=== PATIENT | male | born 1960 | race Caucasian/White ===

== ENCOUNTER 2016-10-11 09:44 | Inpatient (IN) | payer MEDICARE, OTHER ==
[2016-10-11] VITALS (7 sets, daily range): BP systolic 82–117; BP diastolic 51–74
[~2016-10-11] VITALS: Ht 198.1 cm; Wt 87.0 kg
[~2016-10-11 09:44] MED LIST: ADEMPAS HOMEMEDPO; AZIT-14 PO; BACL-19 PO; BISA5TAB5 PO; CEFD300C2 PO; DABI150C PO; DIAZ5TAB PO; FURO-92 PO; FURO-93 PO; FURO20TA3 PO; L. R1CAP PO; LEVO750T6 PO; LOVENOX SC; METO25TA35 PO; POTA8TAB6 PO; RIOC1.5T PO; SENN8.6T64 PO; SERT50TA5 PO; SIME80TA16 PO; TIZA2CAP PO; TIZA2TAB PO; TRAM50TA2 PO; TREP10VI PERC; VALIUM PO; WARF3TAB PO; WARF4TAB PO
[2016-10-11] MEDS ORDERED: ONDANSETRON 2MG/ML, 2ML IVP ONE (10:00)
[2016-10-11] MEDS ORDERED: SODIUM CHLORIDE FLUSH 10ML SYR IVF ONE ×2 (10:00→13:30)
[2016-10-11] MEDS ORDERED: ONDANSETRON 2MG/ML, 2ML ONE (10:06)
[2016-10-11] MEDS ORDERED: MORPHINE SULFATE 4 MG/ML, 1ML ONE ×2 (10:06→10:43)
[2016-10-11] MEDS: MORPHINE SULFATE 4 MG/ML, 1ML IVPush PRN ×3 (10:09→17:18)
[2016-10-11 10:47] LABS: HEMOGLOBIN 11.9 g/dL (13.7-18.0)
[2016-10-11] MEDS ORDERED: LEVOFLOXACIN/PMX 750MG/150ML 150 ML ONE (10:52)
[2016-10-11 10:59] LABS: BLOOD UREA NITROGEN 8 mg/dL (7-18)
[2016-10-11] MEDS ORDERED: LEVOFLOXACIN/PMX 750MG/150ML 150 ML IVPB ONE (11:00)
[2016-10-11] MEDS ORDERED: TRAM50TA2 PO (11:01)
[2016-10-11 11:06] LABS: ASPARTATE AMINO TRANSFERASE 21 U/L (15-37)
[2016-10-11 11:07] LABS: IS PT STATUS REG ER OR PRE ER? YES
[2016-10-11] MEDS ORDERED: DOCUSATE 100 MG CAPSULE PO PRN (13:00)
[2016-10-11] MEDS ORDERED: BISACODYL 10 MG SUPP PR PRN (13:00)
[2016-10-11] MEDS: OXYcodone IR 5MG TABLET PO PRN (16:28)
[2016-10-11 18:30] LABS: ICTOTEST POSITIVE
[2016-10-11] MEDS: RIOCIGUAT 1 MG HOMEMEDPO SCH ×2 (18:59→21:00)
[2016-10-11] MEDS: DIAZEPAM 5 MG TABLET PO SCH (21:43)
[2016-10-11] MEDS: SODIUM CHLORIDE 0.9% 1,000 ML IV SCH (21:43)
[2016-10-11] MEDS: DABIGATRAN 150 MG CAPSULE PO SCH (22:07)
[2016-10-12] MEDS: OXYcodone IR 5MG TABLET PO PRN ×2 (01:03→21:17)
[2016-10-12 01:42] VITALS: BP 96/64
[2016-10-12] MEDS: SODIUM CHLORIDE 0.9% 1,000 ML IV SCH (06:37)
[2016-10-12 07:56] VITALS: BP 98/67
[2016-10-12] MEDS: SERTRALINE 50MG TABLET PO SCH (08:02)
[2016-10-12] MEDS: DABIGATRAN 150 MG CAPSULE PO SCH ×2 (08:02→21:16)
[2016-10-12] MEDS: RIOCIGUAT 1 MG HOMEMEDPO SCH ×3 (08:03→21:17)
[2016-10-12] MEDS ORDERED: PHENYLEPHRINE 10 MG/ML ONE (09:32)
[2016-10-12] MEDS ORDERED: PROPOFOL 10 MG/ML, 20ML ONE (09:32)
[2016-10-12] MEDS: LEVOFLOXACIN/PMX 750MG/150ML 150 ML IV SCH (11:47)
[2016-10-12 15:06] VITALS: BP 91/61
[2016-10-12 16:31] VITALS: BP 97/68
[2016-10-12 18:02] VITALS: BP 97/64
[2016-10-12] MEDS: MORPHINE SULFATE 4 MG/ML, 1ML IVPush PRN (18:05)
[2016-10-12 19:20] VITALS: BP 96/63
[2016-10-12] MEDS: DIAZEPAM 5 MG TABLET PO SCH (21:17)
[2016-10-13 03:48] VITALS: BP 94/60
[2016-10-13] MEDS: OXYcodone IR 5MG TABLET PO PRN (04:00)
[2016-10-13 06:50] VITALS: BP 93/63
[2016-10-13] MEDS ORDERED: DIAZEPAM 5 MG/ML, 2ML ONE (09:44)
[2016-10-13] MEDS ORDERED: DIAZEPAM 5 MG/ML, 2ML IV ONE (10:00)
[2016-10-13] MEDS: RIOCIGUAT 1 MG HOMEMEDPO SCH ×4 (10:10→20:54)
[2016-10-13] MEDS: SERTRALINE 50MG TABLET PO SCH ×2 (10:10→13:27)
[2016-10-13] MEDS: DABIGATRAN 150 MG CAPSULE PO SCH ×3 (10:10→23:46)
[2016-10-13 10:20] LABS: IS PT STATUS REG ER OR PRE ER? NO
[2016-10-13 10:30] VITALS: BP 89/52
[2016-10-13 10:34] LABS: HEMOGLOBIN 11.2 g/dL (13.7-18.0)
[2016-10-13 10:38] LABS: ASPARTATE AMINO TRANSFERASE 23 U/L (15-37); BLOOD UREA NITROGEN 9 mg/dL (7-18)
[2016-10-13] MEDS ORDERED: OMNIPAQUE 350 MG/ML, 100ML BOTTLE ONE (11:22)
[2016-10-13] MEDS: BISACODYL 10 MG SUPP PR PRN (11:36)
[2016-10-13] MEDS: LEVOFLOXACIN/PMX 750MG/150ML 150 ML IV SCH (13:23)
[2016-10-13] MEDS: LINEZOLID 600 MG TABLET PO SCH (20:55)
[2016-10-13] MEDS: DIAZEPAM 5 MG TABLET PO SCH (20:57)
[2016-10-13] MEDS: ONDANSETRON 2MG/ML, 2ML IVP PRN (20:57)
[2016-10-14] MEDS: CARISOPRODOL 350 MG TABLET PO PRN ×2 (06:33→12:53)
[2016-10-14] MEDS: LINEZOLID 600 MG TABLET PO SCH ×2 (09:06→22:06)
[2016-10-14] MEDS: SERTRALINE 50MG TABLET PO SCH (09:06)
[2016-10-14] MEDS: DABIGATRAN 150 MG CAPSULE PO SCH ×2 (09:06→22:06)
[2016-10-14] MEDS: RIOCIGUAT 1 MG HOMEMEDPO SCH ×3 (09:07→21:00)
[2016-10-14] MEDS: ACETAMINOPHEN 325 MG TABLET PO PRN (12:57)
[2016-10-14] MEDS: ONDANSETRON 2MG/ML, 2ML IVP PRN ×2 (12:57→19:33)
[2016-10-14 14:00] VITALS: BP 83/54
[2016-10-14] MEDS ORDERED: KETOROLAC 30 MG/1 ML IVPush ONE (18:30)
[2016-10-14 20:00] VITALS: BP 95/62
[2016-10-14] MEDS: DIAZEPAM 5 MG TABLET PO SCH (22:08)
[2016-10-15 02:00] VITALS: BP 88/59
[2016-10-15 06:39] LABS: HEMOGLOBIN 11.8 g/dL (13.7-18.0)
[2016-10-15 06:50] LABS: ASPARTATE AMINO TRANSFERASE 13 U/L (15-37); BLOOD UREA NITROGEN 8 mg/dL (7-18)
[2016-10-15] MEDS: ONDANSETRON 2MG/ML, 2ML IVP PRN ×3 (07:16→21:03)
[2016-10-15] MEDS: RIOCIGUAT 1 MG HOMEMEDPO SCH ×3 (09:00→22:00)
[2016-10-15] MEDS: SERTRALINE 50MG TABLET PO SCH (09:28)
[2016-10-15] MEDS: DABIGATRAN 150 MG CAPSULE PO SCH ×2 (09:28→20:08)
[2016-10-15] MEDS: LINEZOLID 600 MG TABLET PO SCH ×2 (09:28→20:08)
[2016-10-15] MEDS ORDERED: DIAZEPAM 5 MG/ML, 2ML IV PRN (14:00)
[2016-10-15] MEDS ORDERED: SODIUM CHLORIDE 0.9%, 500ML IVBOLUS ONE ×2 (17:30→18:00)
[2016-10-15 18:10] LABS: BLOOD UREA NITROGEN 9 mg/dL (7-18)
[2016-10-15] MEDS: DIAZEPAM 5 MG TABLET PO SCH (20:08)
[2016-10-16] MEDS: ONDANSETRON 2MG/ML, 2ML IVP PRN ×2 (04:25→12:50)
[2016-10-16 04:34] VITALS: BP 102/61
[2016-10-16 04:43] LABS: HEMOGLOBIN 11.5 g/dL (13.7-18.0)
[2016-10-16 04:50] LABS: BLOOD UREA NITROGEN 10 mg/dL (7-18)
[2016-10-16] MEDS: DABIGATRAN 150 MG CAPSULE PO SCH (09:00)
[2016-10-16] MEDS: RIOCIGUAT 1 MG HOMEMEDPO SCH ×3 (09:00→21:00)
[2016-10-16] MEDS: LINEZOLID 600 MG TABLET PO SCH ×2 (09:15→21:42)
[2016-10-16] MEDS: SERTRALINE 50MG TABLET PO SCH (09:15)
[2016-10-16 12:56] VITALS: BP 89/44
[2016-10-16 13:18] VITALS: BP 91/56
[2016-10-16] MEDS: BACLOFEN 10 MG TABLET PO SCH ×3 (15:16→21:41)
[2016-10-16 15:23] VITALS: BP 90/50
[2016-10-16 21:00] VITALS: BP 97/59
[2016-10-16] MEDS: DIAZEPAM 5 MG TABLET PO SCH (22:29)
[2016-10-17 03:45] VITALS: BP 108/67
[2016-10-17 05:35] LABS: HEMOGLOBIN 11.2 g/dL (13.7-18.0)
[2016-10-17 05:46] LABS: BLOOD UREA NITROGEN 8 mg/dL (7-18)
[2016-10-17 07:31] VITALS: BP 90/51
[2016-10-17] MEDS: ONDANSETRON 2MG/ML, 2ML IVP PRN (08:47)
[2016-10-17] MEDS: BACLOFEN 10 MG TABLET PO SCH ×3 (08:52→20:35)
[2016-10-17] MEDS: LINEZOLID 600 MG TABLET PO SCH (08:53)
[2016-10-17] MEDS: SERTRALINE 50MG TABLET PO SCH (08:54)
[2016-10-17] MEDS: RIOCIGUAT 1 MG HOMEMEDPO SCH ×5 (08:54→21:00)
[2016-10-17 13:15] VITALS: BP 80/49
[2016-10-17 14:59] VITALS: BP 94/59
[2016-10-17] MEDS: DABIGATRAN 150 MG CAPSULE PO SCH (17:16)
[2016-10-17] MEDS ORDERED: FUROSEMIDE 20 MG/2 ML IV ONE (17:30)
[2016-10-17] MEDS ORDERED: POTASSIUM CHLORIDE 20 MEQ TAB.ER.PRT PO ONE (17:30)
[2016-10-17 17:58] VITALS: BP 95/60
[2016-10-17 20:25] VITALS: BP 93/58
[2016-10-17] MEDS: DIAZEPAM 5 MG TABLET PO SCH (20:35)
[2016-10-18 03:00] VITALS: BP 94/59
[2016-10-18] MEDS: ONDANSETRON 2MG/ML, 2ML IVP PRN (03:38)
[2016-10-18] MEDS ORDERED: LOPERAMIDE 2 MG CAPSULE PO PRN (07:00)
[2016-10-18 07:42] LABS: HEMOGLOBIN 12.3 g/dL (13.7-18.0)
[2016-10-18 07:49] LABS: BLOOD UREA NITROGEN 7 mg/dL (7-18)
[2016-10-18] MEDS: MORPHINE SULFATE 4 MG/ML, 1ML IVPush PRN (07:50)
[2016-10-18] MEDS: DABIGATRAN 150 MG CAPSULE PO SCH ×2 (09:00→21:11)
[2016-10-18] MEDS: RIOCIGUAT 1 MG HOMEMEDPO SCH ×4 (09:00→23:09)
[2016-10-18 09:03] VITALS: BP 96/61
[2016-10-18] MEDS: SERTRALINE 50MG TABLET PO SCH (09:18)
[2016-10-18] MEDS: BACLOFEN 10 MG TABLET PO SCH ×3 (09:18→21:11)
[2016-10-18] MEDS ORDERED: POTASSIUM CHLORIDE 20 MEQ TAB.ER.PRT PO ONE (11:00)
[2016-10-18] MEDS ORDERED: FUROSEMIDE 40 MG/4 ML IV ONE (11:00)
[2016-10-18 15:00] VITALS: BP 90/57
[2016-10-18 19:20] VITALS: BP 90/58
[2016-10-18] MEDS: DIAZEPAM 5 MG TABLET PO SCH (21:11)
[2016-10-19 03:30] VITALS: BP 92/54
[2016-10-19 06:00] LABS: BLOOD UREA NITROGEN 9 mg/dL (7-18)
[2016-10-19 08:20] VITALS: BP 92/50
[2016-10-19 08:38] LABS: HEMOGLOBIN 11.4 g/dL (13.7-18.0)
[2016-10-19] MEDS: RIOCIGUAT 1 MG HOMEMEDPO SCH ×3 (09:00→21:00)
[2016-10-19] MEDS: BACLOFEN 10 MG TABLET PO SCH ×3 (09:34→20:47)
[2016-10-19] MEDS: DABIGATRAN 150 MG CAPSULE PO SCH ×2 (09:34→20:47)
[2016-10-19] MEDS: SERTRALINE 50MG TABLET PO SCH (09:34)
[2016-10-19] MEDS ORDERED: FUROSEMIDE 40 MG/4 ML IV ONE (14:30)
[2016-10-19 15:06] VITALS: BP 93/52
[2016-10-19 19:47] VITALS: BP 108/61
[2016-10-19] MEDS: DIAZEPAM 5 MG TABLET PO SCH (20:47)
[2016-10-20 03:30] VITALS: BP 98/58
[2016-10-20 04:10] VITALS: BP_SYST 96; BP_SYST 98; BP_DIAS 58
[2016-10-20 06:10] LABS: HEMOGLOBIN 11.1 g/dL (13.7-18.0)
[2016-10-20 06:24] LABS: BLOOD UREA NITROGEN 8 mg/dL (7-18)
[2016-10-20] MEDS ORDERED: FUROSEMIDE 40 MG/4 ML IV ONE (07:00)
[2016-10-20] MEDS ORDERED: POTASSIUM CHLORIDE 20 MEQ TAB.ER.PRT PO ONE ×2 (07:00→19:00)
[2016-10-20] MEDS: DABIGATRAN 150 MG CAPSULE PO SCH ×2 (08:43→22:39)
[2016-10-20] MEDS: BACLOFEN 10 MG TABLET PO SCH ×3 (08:43→22:38)
[2016-10-20] MEDS: SERTRALINE 50MG TABLET PO SCH (08:44)
[2016-10-20] MEDS: RIOCIGUAT 1 MG HOMEMEDPO SCH ×2 (08:44→18:50)
[2016-10-20 09:25] VITALS: BP 99/67
[2016-10-20 14:55] VITALS: BP 116/73
[2016-10-20 19:55] VITALS: BP 97/57
[2016-10-20] MEDS: DIAZEPAM 5 MG TABLET PO SCH (22:39)
[2016-10-21] MEDS: RIOCIGUAT 1 MG HOMEMEDPO SCH ×3 (00:38→18:01)
[2016-10-21 01:12] VITALS: BP 95/57
[2016-10-21 07:24] VITALS: BP 102/66
[2016-10-21 08:16] LABS: HEMOGLOBIN 11.4 g/dL (13.7-18.0)
[2016-10-21 08:28] LABS: BLOOD UREA NITROGEN 11 mg/dL (7-18)
[2016-10-21] MEDS: MORPHINE SULFATE 4 MG/ML, 1ML IVPush PRN ×2 (11:08→15:00)
[2016-10-21 11:10] VITALS: BP 103/66
[2016-10-21] MEDS: BACLOFEN 10 MG TABLET PO SCH ×3 (11:13→21:10)
[2016-10-21] MEDS: DABIGATRAN 150 MG CAPSULE PO SCH ×2 (11:13→21:10)
[2016-10-21] MEDS: SERTRALINE 50MG TABLET PO SCH (11:13)
[2016-10-21 13:10] VITALS: BP 121/75
[2016-10-21 20:44] VITALS: BP 108/64
[2016-10-21] MEDS: DIAZEPAM 5 MG TABLET PO SCH (21:09)
[2016-10-21 23:03] VITALS: BP 97/61
[2016-10-22] VITALS (7 sets, daily range): BP systolic 81–97; BP diastolic 41–62
[2016-10-22] MEDS: RIOCIGUAT 1 MG HOMEMEDPO SCH ×3 (01:51→22:40)
[2016-10-22 05:29] LABS: HEMOGLOBIN 11.2 g/dL (13.7-18.0)
[2016-10-22 06:44] LABS: ASPARTATE AMINO TRANSFERASE 13 U/L (15-37); BLOOD UREA NITROGEN 12 mg/dL (7-18)
[2016-10-22] MEDS ORDERED: FUROSEMIDE 40 MG/4 ML IV ONE (09:00)
[2016-10-22] MEDS: BACLOFEN 10 MG TABLET PO SCH ×3 (09:36→22:27)
[2016-10-22] MEDS: SERTRALINE 50MG TABLET PO SCH (09:36)
[2016-10-22] MEDS: DABIGATRAN 150 MG CAPSULE PO SCH ×2 (09:38→22:27)
[2016-10-22] MEDS: DIAZEPAM 2 MG TABLET PO PRN (14:56)
[2016-10-22] MEDS ORDERED: RIOCIGUAT PO ONE (17:00)
[2016-10-22] MEDS: MORPHINE SULFATE 4 MG/ML, 1ML IVPush PRN (22:22)
[2016-10-22 23:40] LABS: ICTOTEST NEGATIVE
[2016-10-23] MEDS: DIAZEPAM 5 MG TABLET PO SCH ×2 (00:04→20:17)
[2016-10-23 02:21] VITALS: BP 91/56
[2016-10-23 07:28] VITALS: BP 103/76
[2016-10-23] MEDS: BACLOFEN 10 MG TABLET PO SCH ×3 (08:56→20:17)
[2016-10-23] MEDS: RIOCIGUAT 1 MG HOMEMEDPO SCH ×3 (08:57→20:18)
[2016-10-23] MEDS: SERTRALINE 50MG TABLET PO SCH (08:57)
[2016-10-23] MEDS: DABIGATRAN 150 MG CAPSULE PO SCH ×2 (08:57→20:17)
[2016-10-23 13:54] VITALS: BP 102/62
[2016-10-23 19:25] VITALS: BP 107/62
[2016-10-24 01:38] VITALS: BP 108/62
[2016-10-24 07:02] VITALS: BP 87/47
[2016-10-24 07:16] LABS: BLOOD UREA NITROGEN 12 mg/dL (7-18)
[2016-10-24] MEDS ORDERED: POTASSIUM CHLORIDE 20 MEQ TAB.ER.PRT PO ONE (09:00)
[2016-10-24] MEDS: RIOCIGUAT 1 MG HOMEMEDPO SCH ×3 (09:00→21:00)
[2016-10-24] MEDS: DABIGATRAN 150 MG CAPSULE PO SCH ×2 (09:22→21:44)
[2016-10-24] MEDS: BACLOFEN 10 MG TABLET PO SCH ×3 (09:22→21:44)
[2016-10-24] MEDS: SERTRALINE 50MG TABLET PO SCH (09:22)
[2016-10-24 13:14] VITALS: BP 93/58
[2016-10-24 19:55] VITALS: BP 81/49
[2016-10-24] MEDS: DIAZEPAM 5 MG TABLET PO SCH (21:43)
[2016-10-25 02:25] VITALS: BP 111/75
[2016-10-25 06:30] VITALS: BP 97/49
[2016-10-25] MEDS: SERTRALINE 50MG TABLET PO SCH (08:54)
[2016-10-25] MEDS: DABIGATRAN 150 MG CAPSULE PO SCH ×2 (08:54→21:48)
[2016-10-25] MEDS: RIOCIGUAT 1 MG HOMEMEDPO SCH ×3 (08:55→21:47)
[2016-10-25] MEDS: BACLOFEN 10 MG TABLET PO SCH ×3 (08:55→21:48)
[2016-10-25 13:20] VITALS: BP 95/56
[2016-10-25] MEDS: BISACODYL 10 MG SUPP PR PRN (15:05)
[2016-10-25] MEDS: MORPHINE SULFATE 4 MG/ML, 1ML IVPush PRN ×2 (17:27→21:48)
[2016-10-25 18:55] VITALS: BP 96/56
[2016-10-25] MEDS ORDERED: DIAZEPAM 10 MG TABLET ONE ×3 (19:24→21:28)
[2016-10-25] MEDS: DIAZEPAM 2 MG TABLET PO PRN (19:33)
[2016-10-25] MEDS: DIAZEPAM 5 MG TABLET PO SCH (21:46)
[2016-10-26] VITALS: BP 116/73
[2016-10-26] MEDS: OXYcodone IR 5MG TABLET PO PRN ×2 (00:03→12:56)
[2016-10-26 06:50] VITALS: BP 103/52
[2016-10-26] MEDS: DABIGATRAN 150 MG CAPSULE PO SCH ×2 (09:00→22:48)
[2016-10-26] MEDS: RIOCIGUAT 1 MG HOMEMEDPO SCH ×3 (09:00→21:00)
[2016-10-26] MEDS: BACLOFEN 10 MG TABLET PO SCH ×3 (09:00→22:48)
[2016-10-26] MEDS: SERTRALINE 100MG TABLET PO SCH (09:00)
[2016-10-26] MEDS: MORPHINE SULFATE 4 MG/ML, 1ML IVPush PRN (11:03)
[2016-10-26 13:55] VITALS: BP 92/55
[2016-10-26 20:05] VITALS: BP 123/77
[2016-10-26] MEDS: DIAZEPAM 5 MG TABLET PO SCH (22:48)
[2016-10-27] VITALS (7 sets, daily range): BP systolic 92–106; BP diastolic 45–95
[2016-10-27 07:32] LABS: HEMOGLOBIN 11.5 g/dL (13.7-18.0)
[2016-10-27 07:47] LABS: BLOOD UREA NITROGEN 13 mg/dL (7-18)
[2016-10-27] MEDS: BACLOFEN 10 MG TABLET PO SCH ×3 (08:04→21:55)
[2016-10-27] MEDS: SERTRALINE 100MG TABLET PO SCH (08:04)
[2016-10-27] MEDS: MORPHINE SULFATE 4 MG/ML, 1ML IVPush PRN ×2 (08:04→14:41)
[2016-10-27] MEDS: DABIGATRAN 150 MG CAPSULE PO SCH ×2 (08:04→21:55)
[2016-10-27] MEDS: RIOCIGUAT 1 MG HOMEMEDPO SCH ×3 (09:37→21:00)
[2016-10-27] MEDS: OXYcodone IR 5MG TABLET PO PRN (16:25)
[2016-10-27] MEDS: DIAZEPAM 5 MG TABLET PO SCH (21:55)
[2016-10-28 01:58] VITALS: BP 97/55
[2016-10-28 08:01] VITALS: BP 164/83
[2016-10-28] MEDS: BACLOFEN 10 MG TABLET PO SCH ×3 (09:12→21:50)
[2016-10-28] MEDS: SERTRALINE 100MG TABLET PO SCH (09:12)
[2016-10-28] MEDS: DABIGATRAN 150 MG CAPSULE PO SCH ×2 (09:12→21:50)
[2016-10-28] MEDS: RIOCIGUAT 1 MG HOMEMEDPO SCH ×3 (09:12→23:45)
[2016-10-28] MEDS: MORPHINE SULFATE 4 MG/ML, 1ML IVPush PRN ×2 (12:44→20:04)
[2016-10-28 14:00] VITALS: BP 99/59
[2016-10-28 17:20] LABS: OCCBLD OBC PASS
[2016-10-28] MEDS ORDERED: BISACODYL 10 MG SUPP PR PRN (19:00)
[2016-10-28 20:00] VITALS: BP 95/50
[2016-10-28] MEDS: DOCUSATE 100 MG CAPSULE PO SCH (21:49)
[2016-10-28] MEDS: DIAZEPAM 5 MG TABLET PO SCH (21:50)
[2016-10-29 02:00] VITALS: BP 98/62
[2016-10-29 08:00] VITALS: BP 101/63
[2016-10-29] MEDS: SERTRALINE 100MG TABLET PO SCH (09:04)
[2016-10-29] MEDS: DOCUSATE 100 MG CAPSULE PO SCH ×2 (09:04→21:14)
[2016-10-29] MEDS: BACLOFEN 10 MG TABLET PO SCH ×3 (09:04→21:14)
[2016-10-29] MEDS: DABIGATRAN 150 MG CAPSULE PO SCH ×2 (09:04→21:14)
[2016-10-29] MEDS: RIOCIGUAT 1 MG HOMEMEDPO SCH ×3 (09:05→23:30)
[2016-10-29] MEDS: MORPHINE SULFATE 4 MG/ML, 1ML IVPush PRN ×2 (10:27→15:37)
[2016-10-29 14:00] VITALS: BP 96/61
[2016-10-29] MEDS: ONDANSETRON 2MG/ML, 2ML IVP PRN (17:47)
[2016-10-29 20:45] VITALS: BP 90/53
[2016-10-29] MEDS: DIAZEPAM 5 MG TABLET PO SCH (21:15)
[2016-10-30] VITALS: BP 93/61
[2016-10-30 07:30] VITALS: BP 91/54
[2016-10-30] MEDS ORDERED: DOCUSATE 100 MG CAPSULE PO SCH (09:00)
[2016-10-30] MEDS: RIOCIGUAT 1 MG HOMEMEDPO SCH ×3 (09:00→21:00)
[2016-10-30] MEDS ORDERED: BISACODYL 10 MG SUPP PR SCH (09:00)
[2016-10-30] MEDS: OMEPRAZOLE 20 MG CAPSULE.DR PO SCH (09:38)
[2016-10-30] MEDS: BACLOFEN 10 MG TABLET PO SCH ×3 (09:40→22:16)
[2016-10-30] MEDS: DOCUSATE 100 MG CAPSULE PO SCH ×2 (09:40→22:15)
[2016-10-30] MEDS: DABIGATRAN 150 MG CAPSULE PO SCH ×2 (09:41→22:16)
[2016-10-30] MEDS: SERTRALINE 100MG TABLET PO SCH (09:41)
[2016-10-30] MEDS: BISACODYL 10 MG SUPP PR SCH (09:42)
[2016-10-30] MEDS: MORPHINE SULFATE 4 MG/ML, 1ML IVPush PRN (10:25)
[2016-10-30 13:15] VITALS: BP 94/64
[2016-10-30] MEDS: OXYcodone IR 5MG TABLET PO PRN (13:54)
[2016-10-30] MEDS ORDERED: OMNIPAQUE 350 MG/ML, 100ML BOTTLE ONE (16:18)
[2016-10-30 20:00] VITALS: BP 91/53
[2016-10-30] MEDS: DIAZEPAM 5 MG TABLET PO SCH (22:16)
[2016-10-31 02:00] VITALS: BP 90/56
[2016-10-31] MEDS: MORPHINE SULFATE 4 MG/ML, 1ML IVPush PRN ×2 (06:03→12:58)
[2016-10-31 06:30] VITALS: BP_SYST 92; BP_DIAS 50; BP_DIAS 56
[2016-10-31 06:34] LABS: BLOOD UREA NITROGEN 15 mg/dL (7-18)
[2016-10-31] MEDS: OMEPRAZOLE 20 MG CAPSULE.DR PO SCH (07:52)
[2016-10-31] MEDS: RIOCIGUAT 1 MG HOMEMEDPO SCH ×3 (09:00→21:00)
[2016-10-31] MEDS: DOCUSATE 100 MG CAPSULE PO SCH ×2 (10:04→21:27)
[2016-10-31] MEDS: BACLOFEN 10 MG TABLET PO SCH ×3 (10:04→21:04)
[2016-10-31] MEDS: SERTRALINE 100MG TABLET PO SCH (10:04)
[2016-10-31] MEDS: DABIGATRAN 150 MG CAPSULE PO SCH ×2 (10:04→21:04)
[2016-10-31 13:44] VITALS: BP 103/63
[2016-10-31 19:29] VITALS: BP 93/55
[2016-10-31] MEDS: DIAZEPAM 5 MG TABLET PO SCH (21:27)
[2016-11-01 02:00] VITALS: BP 90/53
[2016-11-01 04:36] VITALS: BP 90/53
[2016-11-01] MEDS: MORPHINE SULFATE 4 MG/ML, 1ML IVPush PRN (04:42)
[2016-11-01 05:39] VITALS: BP 90/53
[2016-11-01] MEDS: ONDANSETRON 2MG/ML, 2ML IVP PRN ×3 (08:25→22:22)
[2016-11-01 08:30] VITALS: BP 84/53
[2016-11-01] MEDS: RIOCIGUAT 1 MG HOMEMEDPO SCH ×3 (09:00→21:00)
[2016-11-01] MEDS: DOCUSATE 100 MG CAPSULE PO SCH ×2 (09:41→21:45)
[2016-11-01] MEDS: DABIGATRAN 150 MG CAPSULE PO SCH ×2 (09:41→21:45)
[2016-11-01] MEDS: OMEPRAZOLE 20 MG CAPSULE.DR PO SCH (09:41)
[2016-11-01] MEDS: SERTRALINE 100MG TABLET PO SCH (09:41)
[2016-11-01] MEDS: BISACODYL 10 MG SUPP PR SCH (09:41)
[2016-11-01] MEDS: BACLOFEN 10 MG TABLET PO SCH ×3 (09:42→21:45)
[2016-11-01 13:26] VITALS: BP 96/61
[2016-11-01] MEDS: OXYcodone IR 5MG TABLET PO PRN (14:58)
[2016-11-01] MEDS: ACETAMINOPHEN 325 MG TABLET PO PRN (17:49)
[2016-11-01 20:41] VITALS: BP 83/51
[2016-11-01] MEDS: DIAZEPAM 5 MG TABLET PO SCH (21:45)
[2016-11-02 02:30] VITALS: BP 85/52
[2016-11-02 04:52] VITALS: BP 87/37
[2016-11-02 06:42] VITALS: BP 99/56
[2016-11-02] MEDS: RIOCIGUAT 1 MG HOMEMEDPO SCH ×3 (09:00→21:51)
[2016-11-02] MEDS ORDERED: GADOBUTROL 10 MMOL/10 ML PFS ONE (09:29)
[2016-11-02] MEDS: OMEPRAZOLE 20 MG CAPSULE.DR PO SCH (10:07)
[2016-11-02] MEDS: DOCUSATE 100 MG CAPSULE PO SCH ×2 (10:09→21:50)
[2016-11-02] MEDS: BACLOFEN 10 MG TABLET PO SCH ×3 (10:10→21:50)
[2016-11-02] MEDS: SERTRALINE 100MG TABLET PO SCH (10:10)
[2016-11-02] MEDS: DABIGATRAN 150 MG CAPSULE PO SCH ×2 (10:11→21:50)
[2016-11-02] MEDS: ONDANSETRON 2MG/ML, 2ML IVP PRN (10:20)
[2016-11-02 13:17] VITALS: BP 89/58
[2016-11-02 18:35] VITALS: BP 91/54
[2016-11-02] MEDS: DIAZEPAM 5 MG TABLET PO SCH (21:50)
[2016-11-03 01:31] VITALS: BP 92/53
[2016-11-03] MEDS: OXYcodone IR 5MG TABLET PO PRN ×3 (01:36→19:38)
[2016-11-03 06:41] VITALS: BP 87/50
[2016-11-03] MEDS: BACLOFEN 10 MG TABLET PO SCH ×3 (08:16→23:52)
[2016-11-03] MEDS: DABIGATRAN 150 MG CAPSULE PO SCH ×2 (08:16→23:53)
[2016-11-03] MEDS: OMEPRAZOLE 20 MG CAPSULE.DR PO SCH (08:16)
[2016-11-03] MEDS: DOCUSATE 100 MG CAPSULE PO SCH ×2 (08:16→23:53)
[2016-11-03] MEDS: RIOCIGUAT 1 MG HOMEMEDPO SCH ×3 (08:17→21:00)
[2016-11-03] MEDS: SERTRALINE 100MG TABLET PO SCH (08:17)
[2016-11-03] MEDS: ACETAMINOPHEN 325 MG TABLET PO PRN ×2 (09:23→14:25)
[2016-11-03] MEDS: BISACODYL 10 MG SUPP PR SCH (12:07)
[2016-11-03 13:59] VITALS: BP 94/51
[2016-11-03] MEDS: ONDANSETRON 2MG/ML, 2ML IVP PRN (17:50)
[2016-11-03 20:00] VITALS: BP 98/63
[2016-11-03] MEDS: DIAZEPAM 5 MG TABLET PO SCH (23:53)
[2016-11-04 02:00] VITALS: BP 91/61
[2016-11-04 08:00] VITALS: BP 88/48
[2016-11-04] MEDS: RIOCIGUAT 1 MG HOMEMEDPO SCH ×3 (09:00→21:00)
[2016-11-04] MEDS: SERTRALINE 100MG TABLET PO SCH (10:00)
[2016-11-04] MEDS: OMEPRAZOLE 20 MG CAPSULE.DR PO SCH (10:01)
[2016-11-04] MEDS: DOCUSATE 100 MG CAPSULE PO SCH ×2 (10:01→21:41)
[2016-11-04] MEDS: DABIGATRAN 150 MG CAPSULE PO SCH ×2 (10:01→21:41)
[2016-11-04] MEDS: BACLOFEN 10 MG TABLET PO SCH ×3 (10:01→21:41)
[2016-11-04 12:08] LABS: HEMOGLOBIN 10.8 g/dL (13.7-18.0)
[2016-11-04 12:20] LABS: ASPARTATE AMINO TRANSFERASE 34 U/L (15-37); BLOOD UREA NITROGEN 18 mg/dL (7-18)
[2016-11-04 13:00] VITALS: BP 110/73
[2016-11-04] MEDS ORDERED: TIZANIDINE 4MG TABLET PO SCH (15:30)
[2016-11-04] MEDS ORDERED: FUROSEMIDE 20 MG/2 ML IV ONE (16:30)
[2016-11-04] MEDS ORDERED: FUROSEMIDE 40 MG/4 ML ONE (17:23)
[2016-11-04 18:53] LABS: ICTOTEST NEGATIVE
[2016-11-04 19:28] VITALS: BP 88/53
[2016-11-04] MEDS: DIAZEPAM 5 MG TABLET PO SCH (21:41)
[2016-11-04 23:00] VITALS: BP 85/50
[2016-11-05 02:00] VITALS: BP 114/70
[2016-11-05] MEDS: DABIGATRAN 150 MG CAPSULE PO SCH ×2 (08:58→22:11)
[2016-11-05] MEDS: SERTRALINE 100MG TABLET PO SCH (08:58)
[2016-11-05] MEDS: DOCUSATE 100 MG CAPSULE PO SCH ×2 (08:58→22:11)
[2016-11-05] MEDS: OMEPRAZOLE 20 MG CAPSULE.DR PO SCH (08:58)
[2016-11-05] MEDS: RIOCIGUAT 1 MG HOMEMEDPO SCH ×3 (08:58→21:00)
[2016-11-05] MEDS: BISACODYL 10 MG SUPP PR SCH (09:00)
[2016-11-05 09:43] VITALS: BP 102/69
[2016-11-05] MEDS ORDERED: SERTRALINE 50MG TABLET PO SCH (10:00)
[2016-11-05] MEDS ORDERED: FUROSEMIDE 20 MG/2 ML IV ONE (14:00)
[2016-11-05 14:33] VITALS: BP 90/53
[2016-11-05 17:34] VITALS: BP 92/54
[2016-11-05 20:00] VITALS: BP 91/45
[2016-11-05] MEDS: DIAZEPAM 5 MG TABLET PO SCH (22:18)
[2016-11-06 02:30] VITALS: BP 90/52
[2016-11-06 06:30] VITALS: BP 95/55
[2016-11-06] MEDS: PANTOPROZOLE 40MG TABLET PO SCH (08:49)
[2016-11-06] MEDS: DABIGATRAN 150 MG CAPSULE PO SCH ×2 (08:50→22:06)
[2016-11-06] MEDS: SERTRALINE 100MG TABLET PO SCH (08:50)
[2016-11-06] MEDS: DOCUSATE 100 MG CAPSULE PO SCH ×2 (08:50→22:06)
[2016-11-06] MEDS: RIOCIGUAT 1 MG HOMEMEDPO SCH ×3 (08:51→21:00)
[2016-11-06] MEDS: OXYcodone IR 5MG TABLET PO PRN (08:51)
[2016-11-06] MEDS: SUCRALFATE 1 GM TABLET PO SCH ×3 (11:00→22:06)
[2016-11-06 14:00] VITALS: BP 96/63
[2016-11-06] MEDS ORDERED: OXYcodone IR 5MG TABLET PO PRN (17:00)
[2016-11-06 18:58] VITALS: BP 61/34
[2016-11-06] MEDS ORDERED: FUROSEMIDE 20 MG/2 ML IV ONE (19:00)
[2016-11-06] MEDS ORDERED: SODIUM CHLORIDE 0.9% 1,000ML IVBOLUS ONE (19:30)
[2016-11-06] MEDS: DIAZEPAM 5 MG TABLET PO SCH (22:06)
[2016-11-06 22:15] VITALS: BP 89/62
[2016-11-07 01:10] VITALS: BP 80/52
[2016-11-07] MEDS ORDERED: SODIUM CHLORIDE 0.9%, 500ML IVBOLUS ONE (02:00)
[2016-11-07 06:32] VITALS: BP 103/66
[2016-11-07 07:13] VITALS: BP 122/81
[2016-11-07] MEDS: DABIGATRAN 150 MG CAPSULE PO SCH ×2 (08:46→21:00)
[2016-11-07] MEDS: RIOCIGUAT 1 MG HOMEMEDPO SCH ×2 (08:46→16:00)
[2016-11-07] MEDS: SERTRALINE 100MG TABLET PO SCH (08:46)
[2016-11-07] MEDS: DOCUSATE 100 MG CAPSULE PO SCH ×2 (08:46→21:00)
[2016-11-07] MEDS: SUCRALFATE 1 GM TABLET PO SCH ×3 (08:46→16:26)
[2016-11-07] MEDS: PANTOPROZOLE 40MG TABLET PO SCH (08:46)
[2016-11-07] MEDS: BISACODYL 10 MG SUPP PR SCH ×2 (09:00→11:49)
[2016-11-07 12:55] VITALS: BP 94/59
[2016-11-07] MEDS: ACETAMINOPHEN 325 MG TABLET PO PRN (13:06)
[2016-11-07] MEDS: ONDANSETRON 2MG/ML, 2ML IVP PRN (14:56)
[2016-11-07] MEDS ORDERED: MORPHINE SULFATE 4 MG/ML, 1ML ONE (18:40)
[2016-11-07] MEDS ORDERED: morphine SULFATE 125 MG in SODIUM CHLORIDE 0.9% 237.5 ML IV PRN (18:42)
[2016-11-07] MEDS ORDERED: ATROPINE OPHTH SOLN 1%, 5ML BC PRN (19:00)
[2016-11-07] MEDS ORDERED: LORazepam 2 MG/ML, 1ML IVPush PRN (19:00)
[2016-11-07] MEDS ORDERED: SCOPOLAMINE PATCH, 1.5MG PATCH.TD72 TD PRN (19:00)
[2016-11-07] MEDS ORDERED: morphine SULFATE ORAL.CONC 20 MG/ML BC PRN (19:00)
[2016-11-07] MEDS ORDERED: MORPHINE SULFATE 4 MG/ML, 1ML IVPush PRN ×2 (19:00)
[2016-11-07 20:00] VITALS: BP 73/38
[2016-11-07] MEDS ORDERED: SODIUM CHLORIDE FLUSH 10ML SYR IVF SCH (21:00)
[2016-11-07] MEDS: DIAZEPAM 5 MG TABLET PO SCH (21:00)
== END 2016-11-08 11:50 | disposition expired | DRG 189 ==
LOC: ED 10:05 → EDIP 12:03 → 3NE 13:45 → 5SO 15:44 → CCU 10-13 11:12 → 5SO 10-16 12:29 → 4EST 10-23 17:51
PROVIDERS: ADMIT Family Medicine; ATTEND Family Medicine
PROC: 0T9B70Z Drainage of Bladder with Drainage Device, Via Natural or Artificial Opening (ICD-10-PCS; 2016-10-11)
PROC: 5A2204Z Restoration of Cardiac Rhythm, Single (ICD-10-PCS; principal; 2016-10-12 09:30)
PROC: 0T9B70Z Drainage of Bladder with Drainage Device, Via Natural or Artificial Opening (ICD-10-PCS; 2016-11-04)
DX: J96.21 Acute and chronic respiratory failure with hypoxia (principal); G82.50 Quadriplegia, unspecified; G93.40 Encephalopathy, unspecified; I48.92 Unspecified atrial flutter; I27.82 Chronic pulmonary embolism; B37.49 Other urogenital candidiasis; D68.69 Other thrombophilia; I50.42 Chronic combined systolic (congestive) and diastolic (congestive) heart failure; J98.11 Atelectasis; K56.7 Ileus, unspecified; E46 Unspecified protein-calorie malnutrition; T83.83XA Hemorrhage due to genitourinary prosthetic devices, implants and grafts, initial encounter; I82.509 Chronic embolism and thrombosis of unspecified deep veins of unspecified lower extremity; B95.62 Methicillin resistant Staphylococcus aureus infection as the cause of diseases classified elsewhere; I27.2 Other secondary pulmonary hypertension; R31.0 Gross hematuria; Y65.8 Other specified misadventures during surgical and medical care; F32.9 Major depressive disorder, single episode, unspecified; G89.29 Other chronic pain; G90.4 Autonomic dysreflexia; H57.02 Anisocoria; I10 Essential (primary) hypertension; I25.10 Atherosclerotic heart disease of native coronary artery without angina pectoris; I25.2 Old myocardial infarction; J45.909 Unspecified asthma, uncomplicated; K59.4 Anal spasm; K64.8 Other hemorrhoids; L89.892 Pressure ulcer of other site, stage 2; L89.512 Pressure ulcer of right ankle, stage 2; Z51.5 Encounter for palliative care; N31.9 Neuromuscular dysfunction of bladder, unspecified; Z79.01 Long term (current) use of anticoagulants; Z79.4 Long term (current) use of insulin; Z82.49 Family history of ischemic heart disease and other diseases of the circulatory system; Z82.5 Family history of asthma and other chronic lower respiratory diseases; Z86.14 Personal history of Methicillin resistant Staphylococcus aureus infection; Z87.01 Personal history of pneumonia (recurrent); Z87.11 Personal history of peptic ulcer disease; Z87.440 Personal history of urinary (tract) infections; Z87.81 Personal history of (healed) traumatic fracture; Z87.891 Personal history of nicotine dependence; Z88.0 Allergy status to penicillin; Z99.81 Dependence on supplemental oxygen; Z88.1 Allergy status to other antibiotic agents; Z88.8 Allergy status to other drugs, medicaments and biological substances; Z68.22 Body mass index [BMI] 22.0-22.9, adult; Z66 Do not resuscitate
CPT/HCPCS: 36415; 71010; 71275; 72156; 72157; 74000; 74177; 76700; 76857; 80048; 80053; 81001; 82040; 82140; 82272; 82962; 83605; 83735; 83880; 84134; 84443; 84484; 85014; 85018; 85025; 85610; 85730; 86677; 87040; 87070; 87077; 87081; 87086; 87106; 87186; 87205; 87324; 92960; 93005; 96365; 96375; A9585; J1885; J1940; J1956; J2405; J2704; J3360; Q9967; J2270; J2370; J7030; J7040; J7050